=== PATIENT | male | born 1975 | race African-American/Black ===

== ENCOUNTER 2020-05-17 07:45 | Emergency (ER) | payer MEDICAID ==
[~2020-05-17] VITALS: Ht 190.5 cm; Wt 86.8 kg
[2020-05-17 07:47] VITALS: Ht 190.5 cm; Wt 86.8 kg
[2020-05-17] MEDS ORDERED: BACLOFEN10 MG PO (07:59)
[2020-05-17] MEDS ORDERED: DEPAKOTE ER250 MG PO (08:00)
[2020-05-17] MEDS ORDERED: FLOMAX0.4 MG PO (08:00)
[2020-05-17] MEDS ORDERED: OXYBUTYNIN CHLOR5 MG PO (08:00)
[2020-05-17] MEDS ORDERED: PROVERA10 MG PO (08:01)
[2020-05-17] MEDS ORDERED: PAXIL30 MG PO (08:01)
[2020-05-17] MEDS ORDERED: SENNA LAXATIVE8.6 MG PO (08:02)
[2020-05-17] MEDS ORDERED: TEGRETOL200 MG PO (08:03)
[2020-05-17] MEDS ORDERED: TECFIDERA PO (08:04)
[2020-05-17 11:05] VITALS: BP 119/78
== END 2020-05-17 11:05 | disposition home or self-care (01) ==
LOC: D.ER 07:45
DX: T83.098A Other mechanical complication of other urinary catheter, initial encounter (principal); G35 Multiple sclerosis

== ENCOUNTER 2020-07-01 09:06 | Inpatient (IN) | payer MEDICAID ==
[2020-07-01] VITALS (8 sets, daily range): BP systolic 105–120; BP diastolic 63–88; BMI 23.6
[~2020-07-01] VITALS: Ht 190.5 cm; Wt 78.6 kg
[~2020-07-01 09:06] MED LIST: BACLOFEN10 MG PO; DEPAKOTE ER250 MG PO; FLOMAX0.4 MG PO; OXYBUTYNIN CHLOR5 MG PO; PAXIL30 MG PO; PROVERA10 MG PO; SENNA LAXATIVE8.6 MG PO; TECFIDERA PO; TEGRETOL200 MG PO
--- NOTE | 2020-07-01 09:27 | NUR ---
COD SEPSIS INITIATED AT THIS TIME.
--- NOTE | 2020-07-01 09:28 | NUR ---
PT RECEIVED 1000 ML LR CARE MANAGER. PER EDP MAYCOL, SUBTRACT THIS FROM ORDERED LR BOLUS
--- NOTE | 2020-07-01 09:29 | NUR ---
PT TO RECEIVE 1577 LR BOLUS AFTER COMPLETION OF 1L BOLUS PT HAS HAD EN ROUTE.
[2020-07-01 09:39] LABS: BASOPHILS 0.1 % (0-2); EOSINOPHILS 0 % (0-7); HEMATOCRIT 35.2 % (42.0-54.0); HEMOGLOBIN 11.2 g/dL (13.5-17.5); IMMATURE GRANULOCYTES 0.3 % (0-5); MCH 28.5 pg (26.0-34.0); MCHC 31.8 g/dL (31.0-37.0); MCV 89.6 fL (80.0-100.0); MEAN PLATELET VOLUME 10.8 fL (7.4-10.4); NEUTROPHILS 80.6 % (40-80); PLATELET COUNT 183 10x3/uL (130-400); RBC 3.93 10x6/uL (4.20-6.10); RDW 16.4 % (11.5-14.5); WBC 10.4 10x3/uL (4.8-10.8)
[2020-07-01 09:50] LABS: APTT 34.8 SECONDS (22.8-39.4); INR 1.1 (0.85-1.17); PROTIME 14.1 SECONDS (11.6-15.0)
[2020-07-01 10:00] LABS: CALC OSMOLALITY 280 mosm/kg (275-300); CALCIUM 8.5 mg/dL (8.5-10.1); CHLORIDE - SERUM 104 mmol/L (98-107); CREATININE - SERUM 1.4 mg/dL (0.6-1.3); GLUCOSE 147 mg/dL (74-106); POTASSIUM - SERUM 3.5 mmol/L (3.5-5.1); SODIUM 138 mmol/L (136-145); UREA NITROGEN 19 mg/dL (7-18); eGFR NON AFRICAN AMERICAN 58 mL/min (90-120)
[2020-07-01] MEDS ORDERED: ACETAMINOPHEN325 MG PO (10:05)
[2020-07-01] MEDS ORDERED: ZINC-220220 MG PO (10:05)
[2020-07-01] MEDS ORDERED: KEFLEX500 MG PO (10:05)
[2020-07-01] MEDS ORDERED: VITAMIN D5000 UNI1 PO (10:06)
[2020-07-01] MEDS ORDERED: VITAMIN C500 M1 PO (10:06)
[2020-07-01 10:16] LABS: ALBUMIN 2.7 g/dL (3.4-5.0); ALKALINE PHOSPHATASE 74 U/L (30-120); ALT (SGPT) 52 U/L (10-68); BILIRUBIN - TOTAL 0.18 mg/dL (0.2-1.3); CKMB 0.4 U/L (0.0-3.6); CREATINE KINASE 507 UL (21-232); TROPONIN-I < 0.017 ng/mL (0.000-0.060)
[2020-07-01 10:29] LABS: BILIRUBIN NEGATIVE (NEGATIVE); GLUCOSE NEGATIVE (NEGATIVE); KETONE LARGE mg/dL (NEGATIVE); NITRITE NEGATIVE (NEGATIVE); UROBILINOGEN NORMAL (NORMAL)
[2020-07-01 10:32] LABS: BACTERIA FEW /hpf (NEGATIVE)
--- NOTE | 2020-07-01 15:06 | NUR ---
CALLED REPORT TO ARMAAN DIA
--- NOTE | 2020-07-01 15:38 | NUR ---
RECEIVED PATIENT TO ROOM 2137 VIA GERNEY FROM ED AT THIS TIME. PATIENT ALERT/ORIENTED. PATIENT EXTREMELY WEAK REQUIRING MAX ASSISTANCE DURING TRANSFERS. PATIENT HAS MS AND IS TOTALLY DEPENDENT ON CARES AT THIS TIME. CALL LIGHT WITHIN REACH. 20 GAUGE IV 20 LEFT HAND SL. PATIENT RESP EVEN AND UNLABORED. NO DISTRESS.
--- NOTE | 2020-07-01 17:17 | NUR ---
THERON FROM THE LAB CALLED TO REPORT PATIENT IS POSITIVE FOR COVID 19
--- NOTE | 2020-07-01 18:06 | NUR ---
ATTEMPTED TO CALL PATIENTS MOM, LILY HERNANDEZ, AT [phone], TO PROVIDE AN UPDATE ON THE PATIENT. THE PHONE DOES NOT EVEN RING, GOES STRAIGHT TO VOICE MAIL AND STATES THE MAILBOX IS FULL, UNABLE TO LEAVE MESSAGE.
[2020-07-02 05:07] VITALS: BP 117/68
[2020-07-02 07:07] LABS: BASOPHILS 0.1 % (0-2); EOSINOPHILS 0 % (0-7); HEMATOCRIT 34.3 % (42.0-54.0); HEMOGLOBIN 10.8 g/dL (13.5-17.5); IMMATURE GRANULOCYTES 0.4 % (0-5); MCH 28.2 pg (26.0-34.0); MCHC 31.5 g/dL (31.0-37.0); MCV 89.6 fL (80.0-100.0); MEAN PLATELET VOLUME 11.4 fL (7.4-10.4); MONOCYTES 8.6 % (2-11); NEUTROPHILS 73.9 % (40-80); PLATELET COUNT 163 10x3/uL (130-400); RBC 3.83 10x6/uL (4.20-6.10); RDW 16.7 % (11.5-14.5)
[2020-07-02 07:15] LABS: WBC 7.7 10x3/uL (4.8-10.8)
[2020-07-02 07:23] LABS: ALBUMIN 2.5 g/dL (3.4-5.0); ALKALINE PHOSPHATASE 65 U/L (30-120); ALT (SGPT) 40 U/L (10-68); CALC OSMOLALITY 284 mosm/kg (275-300); CALCIUM 8.5 mg/dL (8.5-10.1); CARBON DIOXIDE 26.6 mmol/L (21.0-32.0); CHLORIDE - SERUM 107 mmol/L (98-107); GLUCOSE 126 mg/dL (74-106); PROTEIN - SERUM 6.8 g/dL (6.4-8.2); SODIUM 141 mmol/L (136-145); UREA NITROGEN 18 mg/dL (7-18)
[2020-07-02 07:27] LABS: CREATININE - SERUM 0.9 mg/dL (0.6-1.3); POTASSIUM - SERUM 4.1 mmol/L (3.5-5.1); eGFR NON AFRICAN AMERICAN > 90 mL/min (90-120)
--- NOTE | 2020-07-02 08:00 | NUR ---
PT SITTING UP IN BED, RR EVEN AND UNLABORED ON 3L NC. REPOSITIONED TO COMFORT. SWITCHED OUT REGULAR CALL LIGHT FOR SPECIALIZED BLOW-CONTROLLED CALL LIGHT. ASSISTED WITH MEAL. BM X1. LINENS AND GOWN CHANGED. PT CLEANED. PT C/O HEELS HURTING. HEEL PROTECTORS PLACED. ORAL CARE PROVIDED. FACE WASHED PER REQUEST. MOISTERIZER APPLIED TO LIPS. ALLEN CARE PROVIDED TO SUPRAPUBIC CATHETER. WILL CONTINUE TO MONIOTR.Y
[2020-07-02 09:16] VITALS: BP 94/56
--- NOTE | 2020-07-02 17:00 | NUR ---
ASSISTED WITH MEAL. CALLED FAMILY MEMBER AND ASSISTED PT WITH HOLDING PHONE UP TO EAR. WILL CONTINUE TO MONITOR.
[2020-07-02 17:31] VITALS: BP 115/71
--- NOTE | 2020-07-02 19:30 | NUR ---
RECEIVED REPORT, WILL ASSUME CARE OF PT, GAVE A DRINK OF LEMONLIME, HELP TO REPOSTION, DENIES ANY OTHER NEEDS AT THIS TIME, BED IS LOW, SRX3, CALL LIGHT IN REACH OF MOUTH,WILL CONTINUE PLAN OF CARE
[2020-07-02 20:00] VITALS: BP 126/70
--- NOTE | 2020-07-03 04:14 | NUR ---
I have reviewed this patient and I concur with the Shift Assessment completed by the Licensed Practical Nurse today this shift.
[2020-07-03] MEDS ORDERED: TECFIDERA PO (07:16)
[2020-07-03 10:37] VITALS: BP 114/71
--- NOTE | 2020-07-03 11:03 | NUR ---
DEV DANIELLE REQUESTED THAT TECFIDERA 240MG BE RESTARTED. ADDED TO HOME MED REQ AND CONTACTED PHARMACY WHO STATED THAT IT WOULD BE BEST TO GET THAT MEDICATION FROM HOME BECAUSE THEY DO NOT CARRY IT. WILL CTM.
[2020-07-03 11:31] VITALS: BP 111/65
[2020-07-03 15:29] LABS: BASOPHILS 0.1 % (0-2); EOSINOPHILS 0 % (0-7); HEMATOCRIT 33.4 % (42.0-54.0); HEMOGLOBIN 10.3 g/dL (13.5-17.5); IMMATURE GRANULOCYTES 0.3 % (0-5); LYMPHOCYTES 9.8 % (15-50); MCH 27.9 pg (26.0-34.0); MCHC 30.8 g/dL (31.0-37.0); MCV 90.5 fL (80.0-100.0); MEAN PLATELET VOLUME 10.8 fL (7.4-10.4); MONOCYTES 7.8 % (2-11); PLATELET COUNT 184 10x3/uL (130-400); RBC 3.69 10x6/uL (4.20-6.10); RDW 16.7 % (11.5-14.5); WBC 6.9 10x3/uL (4.8-10.8)
[2020-07-03 16:35] LABS: C-REACTIVE PROTEIN 5.5 mg/dL (0.0-0.9); CALC OSMOLALITY 287 mosm/kg (275-300); CARBON DIOXIDE 28.3 mmol/L (21.0-32.0); CHLORIDE - SERUM 108 mmol/L (98-107); GLUCOSE 132 mg/dL (74-106); LDH 214 U/L (85-227); POTASSIUM - SERUM 4.5 mmol/L (3.5-5.1); SODIUM 143 mmol/L (136-145); UREA NITROGEN 14 mg/dL (7-18); eGFR NON AFRICAN AMERICAN 86 mL/min (90-120)
[2020-07-03 16:41] LABS: FERRITIN 1271 ng/mL (3-244)
[2020-07-03 16:44] VITALS: BP 115/62
--- NOTE | 2020-07-03 19:10 | NUR ---
PT RESTING IN BED WATCHING TV. HE IS ON 2.5L NC. NO DISTRESS NOTED. HEEL PROTECTORS ON. SUPRAPUBIC CATHETER IN PLACE, JULIANE COLORED URINE IN ALLEN DRAINAGE BAG. PT DENIES NEEDS OR PAIN. THE HANDS FREE DEVICE FOR TV REMOTE AND CALL LIGHT WITHIN REACH. BED IS LOW AND SIDE RAILS UP X 2.
[2020-07-03 20:00] VITALS: BP 119/59
[2020-07-04] VITALS: BP 109/66
[2020-07-04 04:00] VITALS: BP 114/64
[2020-07-04 09:05] VITALS: BP 92/73
--- NOTE | 2020-07-04 10:12 | NUR ---
PT SITTING UP IN BED, RR EVEN AND UNLABORED ON 3L NC. BREAKFAST TRAY DELIVERED. PT STAES HE IS NOT HUNGRY AND REFUSES TRAY. REPOSITIONED TO COMFORT. . DENIES NEEDS OR PAIN AT THIS TIME. SPECIALIZED CALL LIGHT WTIHIN REACH, BED IN LOWEST POSITION. WILL CONTINUE TO MONITOR.
--- NOTE | 2020-07-04 12:30 | NUR ---
I have reviewed this patient and I concur with the Shift Assessment completed by the Licensed Practical Nurse today this shift.
--- NOTE | 2020-07-04 12:36 | NUR ---
ASSISTED PT EATING. SPECIALIZED CALL LIGHT WITHIN REACH. BED IN LOWEST POSITION. HELD PHONE WHILE PT TALKED WITH HIS MOTHER. WILL CALL AND UPDATE HER ON POC WHEN I LEAVE THE ROOM. REPOSITIONED TO COMFORT. DENIES FURTHER NEEDS OR PAIN AT THIS TIME.
[2020-07-04 13:34] VITALS: BP 118/60
--- NOTE | 2020-07-04 14:46 | NUR ---
I have reviewed this patient and I concur with the Shift Assessment completed by the Licensed Practical Nurse today this shift.
[2020-07-04 19:00] LABS: BASOPHILS 0.2 % (0-2); EOSINOPHILS 0 % (0-7); HEMOGLOBIN 10.5 g/dL (13.5-17.5); IMMATURE GRANULOCYTES 0.8 % (0-5); LYMPHOCYTES 23.3 % (15-50); MCH 27.8 pg (26.0-34.0); MCHC 30.9 g/dL (31.0-37.0); MCV 89.9 fL (80.0-100.0); MEAN PLATELET VOLUME 11.5 fL (7.4-10.4); MONOCYTES 9.5 % (2-11); NEUTROPHILS 66.2 % (40-80); PLATELET COUNT 205 10x3/uL (130-400); RBC 3.78 10x6/uL (4.20-6.10); RDW 16.4 % (11.5-14.5); WBC 4.9 10x3/uL (4.8-10.8)
[2020-07-04 19:12] LABS: CALC OSMOLALITY 287 mosm/kg (275-300); CALCIUM 8.7 mg/dL (8.5-10.1); CARBON DIOXIDE 29.3 mmol/L (21.0-32.0); CHLORIDE - SERUM 109 mmol/L (98-107); CREATININE - SERUM 0.9 mg/dL (0.6-1.3); GLUCOSE 118 mg/dL (74-106); POTASSIUM - SERUM 4.3 mmol/L (3.5-5.1); SODIUM 144 mmol/L (136-145); UREA NITROGEN 12 mg/dL (7-18); eGFR NON AFRICAN AMERICAN > 90 mL/min (90-120)
[2020-07-04 20:00] VITALS: BP 118/67
[2020-07-05] VITALS: BP 135/72
--- NOTE | 2020-07-05 03:52 | NUR ---
I have reviewed this patient and I concur with the Shift Assessment completed by the Licensed Practical Nurse today this shift.
[2020-07-05 04:00] VITALS: BP 122/67
--- NOTE | 2020-07-05 05:10 | NUR ---
PT'S MOTHER WOULD LIKE TO TALK TO . [phone]. FOR UPDATE.
[2020-07-05 06:49] LABS: BASOPHILS 0.4 % (0-2); EOSINOPHILS 0 % (0-7); HEMATOCRIT 32.1 % (42.0-54.0); IMMATURE GRANULOCYTES 1.3 % (0-5); LYMPHOCYTES 32.5 % (15-50); MCH 28.2 pg (26.0-34.0); MCHC 31.2 g/dL (31.0-37.0); MCV 90.4 fL (80.0-100.0); MEAN PLATELET VOLUME 11.6 fL (7.4-10.4); NEUTROPHILS 54.8 % (40-80); PLATELET COUNT 207 10x3/uL (130-400); RBC 3.55 10x6/uL (4.20-6.10); RDW 16.6 % (11.5-14.5); WBC 5.5 10x3/uL (4.8-10.8)
[2020-07-05 06:55] LABS: C-REACTIVE PROTEIN 3.4 mg/dL (0.0-0.9); CALC OSMOLALITY 280 mosm/kg (275-300); CALCIUM 7.8 mg/dL (8.5-10.1); CARBON DIOXIDE 30.3 mmol/L (21.0-32.0); CHLORIDE - SERUM 104 mmol/L (98-107); FERRITIN 822 ng/mL (3-244); GLUCOSE 91 mg/dL (74-106); LDH 184 U/L (85-227); SODIUM 141 mmol/L (136-145); UREA NITROGEN 12 mg/dL (7-18); eGFR NON AFRICAN AMERICAN 86 mL/min (90-120)
[2020-07-05 07:00] LABS: POTASSIUM - SERUM 3.4 mmol/L (3.5-5.1)
--- NOTE | 2020-07-05 07:30 | NUR ---
REPORT RECIEVED. PT SITTING SEMI FOWLERS IN BED. RR EVEN AND UNLABORED ON 3L. PT HAS A SUPRAPUBIC CATH DRAINING URINE. PT HAS A R AND L HAND PIV THAT ARE BOTH SL. BED LOCKED AND IN LOWEST POSITION, CALL LIGHT WITHIN REACH. WILL CTM
[2020-07-05 08:19] VITALS: BP 114/69
[2020-07-05 11:49] VITALS: BP 117/58
--- NOTE | 2020-07-05 13:25 | MORECARE ---
CASE MANAGEMENT DISCHARGE SUMMARY PATIENT: MARK HEREDIA UNIT: [id number] ADM DATE: 07/01/20 AGE: 45 : 75 SEX: M ROOM/BED: D.2137 AUTHOR: NANDO MERCHANT PHYSICIAN: REFERRING PHYSICIAN: ANALISA ALCALA MD DATE OF SERVICE: 07/05/20 Discharge Plan Patient Name: MARK HEREDIA [facility] [facility] 1975 Planned Disposition: Home Anticipated Discharge Date: Discharge Date: Expected LOS: Initial Reviewer: [email or web address] Initial Review Date: 07/01/2020 Generated: 07/05/20 2:25 pm Patient Name: MARK HEREDIA Page [id number] at 1325 All edits/amendments must be made on the electronic document DICTATION DATE: 07/05/20 1325 PEDIATRIC SOCIAL WORKER: OBDULIO 07/05/20 1325 RPT#: [id number] DC DATE: STATUS: ADM IN [facility] [address] [place] [address] END OF REPORT
--- NOTE | 2020-07-05 13:32 | MORECARE ---
CASE MANAGEMENT DISCHARGE SUMMARY PATIENT: MARK HEREDIA UNIT: [id number] ADM DATE: 07/01/20 AGE: 45 : 75 SEX: M ROOM/BED: D.2137 AUTHOR: NANDO MERCHANT PHYSICIAN: REFERRING PHYSICIAN: ANALISA ALCALA MD DATE OF SERVICE: 07/05/20 Discharge Plan Patient Name: MARK HEREDIA [facility] [facility] 1975 Planned Disposition: Home Anticipated Discharge Date: Discharge Date: Expected LOS: Initial Reviewer: [email or web address] Initial Review Date: 07/01/2020 Generated: 07/05/20 2:32 pm Comments DCP- Discharge Planning Updated by [email or web address]: Kemi Riojas on 07/05/20 12:[address] CM called pt room for assessment and dc planning, but pt did not answer phone. Pt lives at [facility]. CM will continue to assist in dc planning. Kemi Riojas External Providers External Provider: [facility] Next Contact Date: Service Request Date: Service Type: Resolution: Reviewer: Comments: Last DP export: 07/05/20 12:25 pm Patient Name: MARK HEREDIA Page [id number] at 1332 All edits/amendments must be made on the electronic document DICTATION DATE: 07/05/20 1332 INFORMATION SERVICES CONSULTANT: OBDULIO 07/05/20 1332 RPT#: [id number] DC DATE: STATUS: ADM IN [facility] [address] [place] [address] END OF REPORT
--- NOTE | 2020-07-05 13:57 | MORECARE ---
CASE MANAGEMENT DISCHARGE SUMMARY PATIENT: MARK HEREDIA UNIT: [id number] ADM DATE: 07/01/20 AGE: 45 : 75 SEX: M ROOM/BED: D.2137 AUTHOR: NANDO MERCHANT PHYSICIAN: REFERRING PHYSICIAN: ANALISA ALCALA MD DATE OF SERVICE: 07/05/20 Discharge Plan Patient Name: MARK HEREDIA Facility: [facility]:[place] : 1975 Planned Disposition: Home Anticipated Discharge Date: Discharge Date: Expected LOS: Initial Reviewer: [email or web address] Initial Review Date: 07/01/2020 Generated: 07/05/20 2:57 pm Comments DCP- Discharge Planning Updated by [email or web address]: Kmei Cohen on 07/05/20 12:[address] CM CALLED [facility] AT [phone] AND SPOKE WITH ANA. ANA STATES THE PATIENT WAS BEDBOUND PRIOR TO ADMISSION/. REPORTS HE WAS ABLE TO MOVE HIS UPPER ARMS, WAS ORIENTED X 3, AND WAS NOT ON OXYGEN. STATES APS HAS CUSTODY. HIS DISPENSING LEAD IS YOBANY DELATORRE AT [phone]. CM CALLED YOBANY AND LEFT MESSAGE TO CALL BACK. FACILITY STATES THEY SPEAK WITH THE PT MOTHER LILY AT [phone]. CM WILL CALL MOTHER WITH UPDATES UPON APPOVAL OF APS. CM WILL CONTINUE TO ASSIST NEEDED. KEMI COHEN DCP- Discharge Planning Updated by [email or web address]: Kemi Cohen on 07/05/20 12:[address] CM called pt room for assessment and dc planning, but pt did not answer phone. Pt lives at [facility]. CM will continue to assist in dc planning. Kemi Cohen Last DP export: 07/05/20 12:32 pm Patient Name: MARK HEREDIA Page [id number] at 1357 All edits/amendments must be made on the electronic document DICTATION DATE: 07/05/20 1357 FURNACE COMBUSTION TESTER: OBDULIO 07/05/20 1357 RPT#: [id number] DC DATE: STATUS: ADM IN [facility] [address] [facility] [place] [address] END OF REPORT
[2020-07-05 16:10] VITALS: BP 114/69
--- NOTE | 2020-07-05 18:08 | NUR ---
I have reviewed this patient and I concur with the Shift Assessment completed by the Licensed Practical Nurse today this shift.
[2020-07-06 05:20] LABS: BASOPHILS 0.2 % (0-2); EOSINOPHILS 0 % (0-7); HEMATOCRIT 31.3 % (42.0-54.0); HEMOGLOBIN 9.8 g/dL (13.5-17.5); IMMATURE GRANULOCYTES 2.5 % (0-5); MCH 28.1 pg (26.0-34.0); MCHC 31.3 g/dL (31.0-37.0); MCV 89.7 fL (80.0-100.0); MEAN PLATELET VOLUME 11.4 fL (7.4-10.4); MONOCYTES 10.9 % (2-11); NEUTROPHILS 60.4 % (40-80); PLATELET COUNT 198 10x3/uL (130-400); RBC 3.49 10x6/uL (4.20-6.10); RDW 16.3 % (11.5-14.5); WBC 6.5 10x3/uL (4.8-10.8)
[2020-07-06 05:29] LABS: CALC OSMOLALITY 294 mosm/kg (275-300); CALCIUM 7.6 mg/dL (8.5-10.1); CARBON DIOXIDE 30.9 mmol/L (21.0-32.0); CHLORIDE - SERUM 109 mmol/L (98-107); CREATININE - SERUM 0.9 mg/dL (0.6-1.3); GLUCOSE 92 mg/dL (74-106); POTASSIUM - SERUM 3.8 mmol/L (3.5-5.1); SODIUM 149 mmol/L (136-145); UREA NITROGEN 11 mg/dL (7-18); eGFR NON AFRICAN AMERICAN > 90 mL/min (90-120)
[2020-07-06 07:19] VITALS: BP 123/72
[2020-07-06 10:31] VITALS: BP 122/57
--- NOTE | 2020-07-06 12:00 | NUR ---
PT MOTHER CALLING TO SPEAK WITH PT. AIDE WILL ASSIST PT IN ROOM AT LUNCH WITH FEEDING AND PHONE CALL.
[2020-07-06 12:52] VITALS: Ht 190.5 cm; Wt 78.6 kg
[2020-07-06 14:59] VITALS: BP 104/67
--- NOTE | 2020-07-06 16:20 | NUR ---
PT TURNED, PILLOW SUPPORT, HEELS FLOATED ON PILLOW. PT REQUESTED THAT HIS HEEL BE MASSAGED. CALL LIGHT WITHIN REACH.
[2020-07-07] VITALS: BP 100/54
--- NOTE | 2020-07-07 03:31 | NUR ---
PT RESTING QUIETLY WITH EYES CLOSED. NO S/S OF DISTRESS OBSERVED. CALL LIGHT WITHIN REACH FOR HIM TO USE. NO NEEDS EXPRESSED. WILL CTM.
[2020-07-07 05:34] LABS: BASOPHILS 0.1 % (0-2); EOSINOPHILS 0 % (0-7); HEMATOCRIT 31.1 % (42.0-54.0); HEMOGLOBIN 9.6 g/dL (13.5-17.5); IMMATURE GRANULOCYTES 1.6 % (0-5); MCHC 30.9 g/dL (31.0-37.0); MCV 90.7 fL (80.0-100.0); MEAN PLATELET VOLUME 10.7 fL (7.4-10.4); MONOCYTES 12.1 % (2-11); NEUTROPHILS 69.2 % (40-80); PLATELET COUNT 228 10x3/uL (130-400); RBC 3.43 10x6/uL (4.20-6.10); RDW 16.5 % (11.5-14.5); WBC 8.1 10x3/uL (4.8-10.8)
[2020-07-07 06:15] LABS: C-REACTIVE PROTEIN 6.2 mg/dL (0.0-0.9); CALC OSMOLALITY 289 mosm/kg (275-300); CALCIUM 7.5 mg/dL (8.5-10.1); CARBON DIOXIDE 29.6 mmol/L (21.0-32.0); CHLORIDE - SERUM 109 mmol/L (98-107); CREATININE - SERUM 0.9 mg/dL (0.6-1.3); FERRITIN 855 ng/mL (3-244); GLUCOSE 100 mg/dL (74-106); LDH 227 U/L (85-227); POTASSIUM - SERUM 3.4 mmol/L (3.5-5.1); SODIUM 146 mmol/L (136-145); UREA NITROGEN 9 mg/dL (7-18); eGFR NON AFRICAN AMERICAN > 90 mL/min (90-120)
[2020-07-07 08:57] VITALS: BP 123/58
[2020-07-07 12:47] VITALS: BP 122/73
--- NOTE | 2020-07-07 15:20 | NUR ---
FED PT HIS PIE FROM LUNCH. PT CONSUMED ALL OF PIE BUT NOT THE REST OF HIS LUNCH.
--- NOTE | 2020-07-07 15:31 | NUR ---
PT RECEIVED BED BATH TODAY, LINENS CHANGED. PT TOLERATED WELL.
[2020-07-07 17:18] VITALS: BP 110/65
[2020-07-07 20:00] VITALS: BP 128/69
[2020-07-08 10:36] VITALS: BP 118/52
[2020-07-08 12:23] VITALS: BP 112/69
[2020-07-08 16:03] VITALS: BP 122/71
[2020-07-08 21:38] VITALS: BP 128/79
--- NOTE | 2020-07-09 09:21 | NUR ---
PT AWAKE AND ORIETNED WHEN I ENTERED ROOM. PT TURNED TO LEFT SIDE. REQUESTS FOR US TO CALL HIS LONG-TERM, INFORMED PT I WOULD DO IT AFTER MORNING MEDICATIOSN. ATE TWO SMALL BITES OF BREAKFAST THEN REFUSED MORE. CL IN REACH, SRX2.
[2020-07-09 11:00] VITALS: BP 111/59
--- NOTE | 2020-07-09 14:08 | NUR ---
Nutrition Follow-up: Pt in droplet isolation; covid-19 +. Nursing reports pt not eating well, taking only a few bites of each meal. Diet: Regular, Ensure TID Wt: 173# (07/07) Last BM: 07/09 per chart Labs reviewed Meds noted: Colace, Senokot, Pepcid, Zinc Sulfate, vitamin D, vitamin C -Encourage PO intake and honor food preferences within diet restrictions. -Need new wt; noted daily wts ordered. -RD following.
--- NOTE | 2020-07-09 17:37 | NUR ---
PT AWAKE AND ORIENTED, TURNED TO LEFT SIDE. PT ATE ALL OF HIS PUDDING AND ONE BITE OF PORK. STATES HE'S NO LONGER HUNGRY. DRANK [place]. PREFORMED ORAL CARE. CL IN REACH, SRX2.
--- NOTE | 2020-07-09 18:00 | NUR ---
I have reviewed this patient and I concur with the Shift Assessment completed by the Licensed Practical Nurse today this shift.
--- NOTE | 2020-07-09 20:04 | NUR ---
UNABLE TO SCAN MEDICATION IN PT ROOM
[2020-07-09 20:05] VITALS: BP 117/73
--- NOTE | 2020-07-10 01:22 | NUR ---
PT VOICES NO C/O OR CONCERNS DURING THE NIGHT. CALL LIGHT IN REACH. WILL CTM.
[2020-07-10 07:15] LABS: BASOPHILS 0.3 % (0-2); EOSINOPHILS 0.3 % (0-7); HEMATOCRIT 30.5 % (42.0-54.0); HEMOGLOBIN 9.4 g/dL (13.5-17.5); IMMATURE GRANULOCYTES 1.5 % (0-5); MCH 27.7 pg (26.0-34.0); MCHC 30.8 g/dL (31.0-37.0); MEAN PLATELET VOLUME 10.3 fL (7.4-10.4); MONOCYTES 10.1 % (2-11); NEUTROPHILS 66.8 % (40-80); RBC 3.39 10x6/uL (4.20-6.10); RDW 16.3 % (11.5-14.5); WBC 6.8 10x3/uL (4.8-10.8)
[2020-07-10 07:25] LABS: PLATELET COUNT 294 10x3/uL (130-400)
[2020-07-10 07:32] LABS: CALC OSMOLALITY 289 mosm/kg (275-300); CALCIUM 7.8 mg/dL (8.5-10.1); CARBON DIOXIDE 30.2 mmol/L (21.0-32.0); CHLORIDE - SERUM 109 mmol/L (98-107); CREATININE - SERUM 0.9 mg/dL (0.6-1.3); GLUCOSE 90 mg/dL (74-106); POTASSIUM - SERUM 3.1 mmol/L (3.5-5.1); SODIUM 146 mmol/L (136-145); UREA NITROGEN 11 mg/dL (7-18); eGFR NON AFRICAN AMERICAN > 90 mL/min (90-120)
[2020-07-10 09:05] VITALS: BP 144/70
[2020-07-10 13:04] VITALS: BP 106/54
[2020-07-10 14:38] VITALS: BP 124/63
[2020-07-10 20:00] VITALS: BP 126/60
[2020-07-11 04:00] VITALS: BP 123/60
[2020-07-11 08:29] VITALS: BP 118/60
[2020-07-11] MEDS ORDERED: LEVOFLOXACIN500 MG PO (09:31)
[2020-07-11 10:53] LABS: CALC OSMOLALITY 298 mosm/kg (275-300); CALCIUM 8.1 mg/dL (8.5-10.1); CARBON DIOXIDE 28.4 mmol/L (21.0-32.0); CHLORIDE - SERUM 111 mmol/L (98-107); CREATININE - SERUM 0.9 mg/dL (0.6-1.3); GLUCOSE 115 mg/dL (74-106); POTASSIUM - SERUM 3.2 mmol/L (3.5-5.1); SODIUM 150 mmol/L (136-145); UREA NITROGEN 12 mg/dL (7-18); eGFR NON AFRICAN AMERICAN > 90 mL/min (90-120)
[2020-07-11 10:56] LABS: BASOPHILS 0.8 % (0-2); EOSINOPHILS 0.6 % (0-7); HEMATOCRIT 31.1 % (42.0-54.0); HEMOGLOBIN 9.6 g/dL (13.5-17.5); IMMATURE GRANULOCYTES 2.4 % (0-5); LYMPHOCYTES 19.9 % (15-50); MCH 28.2 pg (26.0-34.0); MCHC 30.9 g/dL (31.0-37.0); MCV 91.2 fL (80.0-100.0); MEAN PLATELET VOLUME 10.7 fL (7.4-10.4); NEUTROPHILS 67.3 % (40-80); PLATELET COUNT 244 10x3/uL (130-400); RBC 3.41 10x6/uL (4.20-6.10); RDW 16.4 % (11.5-14.5); WBC 6.6 10x3/uL (4.8-10.8)
--- NOTE | 2020-07-11 13:16 | MORECARE ---
CASE MANAGEMENT DISCHARGE SUMMARY PATIENT: MARK HEERDIA UNIT: [id number] ADM DATE: 07/01/20 AGE: 45 : 75 SEX: M ROOM/BED: D.2133 AUTHOR: MAYUR,DOC PHYSICIAN: REFERRING PHYSICIAN: ANALISA ALCALA MD DATE OF SERVICE: 07/11/20 Discharge Plan Patient Name: MARK HEREDIA Facility: [facility]:[place] : 1975 Planned Disposition: Home Anticipated Discharge Date: Discharge Date: Expected LOS: Initial Reviewer: [email or web address] Initial Review Date: 07/01/2020 Generated: 07/11/20 2:16 pm Comments DCP- Discharge Planning Updated by [email or web address]: Kemi Cohen on 07/11/20 12:[address] Patient Name: MARK HEREDIA Encounter No: [id number] : 1975 Primary Insurance: MEDICAID [place] Anticipated DC Date: Planned Disposition: Home External Planned Provider: : [facility] DCP follow-up note: CM spoke with Alexa at [facility]. Pt will return to a [facility] long-term bed in the covid unit on [address]. Transportation will be by EMS. Nursing will need to call report to [facility] nurse. Patient and family in agreement with discharge plan. Updated orders and covid results requested information faxed to SNF. Patient\family notified of anticipated dc time. SNF phone number and contact information given to patient \family. Kemi Cohen DCP- Discharge Planning Updated by [email or web address]: Kemi Cohen on 07/05/20 12:[address] CM CALLED [facility] AT [phone] AND SPOKE WITH ANA. ANA STATES THE PATIENT WAS BEDBOUND PRIOR TO ADMISSION/. REPORTS HE WAS ABLE TO MOVE HIS UPPER ARMS, WAS ORIENTED X 3, AND WAS NOT ON OXYGEN. STATES APS HAS CUSTODY. HIS MACHINE STRIPPER CUTTER IS YOBANY DELATORRE AT [phone]. CM CALLED YOBANY AND LEFT MESSAGE TO CALL BACK. FACILITY STATES THEY SPEAK WITH THE PT MOTHER LILY AT [phone]. CM WILL CALL MOTHER WITH UPDATES UPON APPOVAL OF APS. CM WILL CONTINUE TO ASSIST NEEDED. KEMI COHEN DCP- Discharge Planning Updated by [email or web address]: Kemi Cohen on 07/05/20 12:[address] CM called pt room for assessment and dc planning, but pt did not answer phone. Pt lives at [facility]. CM will continue to assist in dc planning. Kemi Cohen Last DP export: 07/05/20 12:57 pm Patient Name: MARK HEREDIA Page 61065 at 1316 All edits/amendments must be made on the electronic document DICTATION DATE: 07/11/20 1316 ACCOUNTS RECEIVABLE CLERK: OBDULIO 07/11/20 1316 RPT#: [id number] DC DATE: STATUS: ADM IN [facility] [address] [place] [address] END OF REPORT
--- NOTE | 2020-07-11 13:25 | MORECARE ---
CASE MANAGEMENT DISCHARGE SUMMARY PATIENT: AMRK HEREDIA UNIT: [id number] ADM DATE: 07/01/20 AGE: 45 : 75 SEX: M ROOM/BED: D.2133 AUTHOR: MAYUR,DOC PHYSICIAN: REFERRING PHYSICIAN: ANALISA ALCALA MD DATE OF SERVICE: 07/11/20 Discharge Plan Patient Name: MARK HEREDIA Facility: [facility]:[place] : 1975 Planned Disposition: Home Anticipated Discharge Date: Discharge Date: Expected LOS: Initial Reviewer: [email or web address] Initial Review Date: 07/01/2020 Generated: 07/11/20 2:24 pm Comments DCP- Discharge Planning Updated by [email or web address]: Kemi Cohen on 07/11/20 12:[address] Patient Name: MARK HEREDIA Encounter No: [id number] : 1975 Primary Insurance: MEDICAID [place] Anticipated DC Date: Planned Disposition: Home External Planned Provider: : [facility] DCP follow-up note: CM spoke with Alexa at [facility]. Pt will return to a [facility] long-term bed in the covid unit on [address]. Transportation will be by EMS. Nursing will need to call report to [facility] nurse. Patient and family in agreement with discharge plan. Updated orders and covid results requested information faxed to SNF. Patient\family notified of anticipated dc time. SNF phone number and contact information given to patient \family. Kemi Cohen DCP- Discharge Planning Updated by [email or web address]: Kemi Cohen on 07/05/20 12:[address] CM CALLED [facility] AT [phone] AND SPOKE WITH ANA. ANA STATES THE PATIENT WAS BEDBOUND PRIOR TO ADMISSION/. REPORTS HE WAS ABLE TO MOVE HIS UPPER ARMS, WAS ORIENTED X 3, AND WAS NOT ON OXYGEN. STATES APS HAS CUSTODY. HIS SOLDERING MACHINE OPERATOR HELPER IS YOBANY DELATORRE AT [phone]. CM CALLED YOBANY AND LEFT MESSAGE TO CALL BACK. FACILITY STATES THEY SPEAK WITH THE PT MOTHER LILY AT [phone]. CM WILL CALL MOTHER WITH UPDATES UPON APPOVAL OF APS. CM WILL CONTINUE TO ASSIST NEEDED. KEMI COHEN DCP- Discharge Planning Updated by [id number]: Kemi Cohen on 07/05/20 12:[address] CM called pt room for assessment and dc planning, but pt did not answer phone. Pt lives at [facility]. CM will continue to assist in dc planning. Kemi Cohen Last DP export: 07/11/20 12:16 p Patient Name: MARK HEREDIA Page 71989 at 1325 All edits/amendments must be made on the electronic document DICTATION DATE: 07/11/20 1325 TUBE KNITTER: OBDULIO 07/11/20 1325 RPT#: [id number] DC DATE: STATUS: ADM IN [facility] [address] [place] [address] END OF REPORT
--- NOTE | 2020-07-11 13:34 | NUR ---
REPORT CALLED TO [facility]. EMS TO TRANSPORT PT.
--- NOTE | 2020-07-11 13:45 | NUR ---
EMS CALLED TO NOTIFY OF PT TRANSPORT. THEY STATED IT WOULD BE ABOUT AN HOUR BEFORE THEY COULD COME GET HIM. WILL CTM
--- NOTE | 2020-07-11 17:20 | NUR ---
EMS CALLED AT THIS TIME. THEY STATED THEY WERE BACKED UP WITH EMERGENCIES, BUT PT WAS NEXT ON THEIR LIST. WILL CTM
--- NOTE | 2020-07-11 18:02 | NUR ---
[facility] HERE TO TRANSPORT PT BACK TO THE [facility], PIV REMOVED,CATH TIP FULLY INTACT. PT BEING DC WITH A SUPRAPUBIC CATH. ALL VALUBLES TAKEN WITH PT.
--- NOTE | 2020-07-11 21:17 | MORECARE ---
CASE MANAGEMENT DISCHARGE SUMMARY PATIENT: MARK HEREDIA UNIT: [id number] ADM DATE: 07/01/20 AGE: 45 : 75 SEX: M ROOM/BED: D.2133 AUTHOR: MAYUR,DOC PHYSICIAN: REFERRING PHYSICIAN: ANALISA ALCALA MD DATE OF SERVICE: 07/11/20 Discharge Plan Patient Name: MARK HEREDIA Facility: [facility]:[place] : 1975 Planned Disposition: Home Anticipated Discharge Date: Discharge Date: 07/11/2020 Expected LOS: Initial Reviewer: [email or web address] Initial Review Date: 07/01/2020 Generated: 07/11/20 10:16 pm Comments DCP- Discharge Planning Updated by [email or web address]: Kemi Cohen on 07/11/20 12:[address] Patient Name: MARK HEREDIA Encounter No: [id number] : 1975 Primary Insurance: MEDICAID [place] Anticipated DC Date: Planned Disposition: Home External Planned Provider: : [facility] DCP follow-up note: CM spoke with Alexa at [facility]. Pt will return to a [facility] long-term bed in the covid unit on [facility]. Transportation will be by EMS. Nursing will need to call report to [facility] nurse. Patient and family in agreement with discharge plan. Updated orders and covid results requested information faxed to SNF. Patient\family notified of anticipated dc time. SNF phone number and contact information given to patient \family. Kemi Cohen DCP- Discharge Planning Updated by [id number]: Kemi Cohen on 07/05/20 12:[address] CM CALLED [facility] AT [phone] AND SPOKE WITH KRISTY. PEREZ STATES THE PATIENT WAS BEDBOUND PRIOR TO ADMISSION/. REPORTS HE WAS ABLE TO MOVE HIS UPPER ARMS, WAS ORIENTED X 3, AND WAS NOT ON OXYGEN. STATES APS HAS CUSTODY. HIS SALESFORCE SPECIALIST IS YOBANYGurmeet DELATORRE AT [phone]. CM CALLED YOBANY AND LEFT MESSAGE TO CALL BACK. FACILITY STATES THEY SPEAK WITH THE PT MOTHER LILY AT [phone]. CM WILL CALL MOTHER WITH UPDATES UPON APPOVAL OF APS. CM WILL CONTINUE TO ASSIST NEEDED. KEMI COHEN DCP- Discharge Planning Updated by [email or web address]: Kemi Cohen on 07/05/20 12:[address] CM called pt room for assessment and dc planning, but pt did not answer phone. Pt lives at [facility]. CM will continue to assist in dc planning. Kemi Cohen Last DP export: 07/11/20 12:25 p Patient Name: MARK HEREDIA Page [id number] at 2117 All edits/amendments must be made on the electronic document DICTATION DATE: 07/11/202115 APPLIANCE LINE ASSEMBLER: OBDULIO 07/11/202115 RPT#: [id number] DC DATE:07/11/20 STATUS: DIS IN [facility] [address] [place] [address] END OF REPORT
== END 2020-07-11 18:03 | DRG 871 ==
LOC: D.ER 09:06 → D.M2 14:53
PROVIDERS: Emergency Medicine; Family Medicine; ADMIT Legal Medicine; ATTEND Legal Medicine
DX: A41.9 Sepsis, unspecified organism (principal); U07.1 COVID-19; J12.89 Other viral pneumonia; G82.50 Quadriplegia, unspecified; N39.0 Urinary tract infection, site not specified; G35 Multiple sclerosis; G71.00 Muscular dystrophy, unspecified; R00.0 Tachycardia, unspecified; Z72.0 Tobacco use; J44.9 Chronic obstructive pulmonary disease, unspecified; K59.00 Constipation, unspecified; D64.9 Anemia, unspecified

== ENCOUNTER → 2021-02-09 | Emergency (ER) | payer MEDICAID ==
[~2021-02-09] VITALS: Ht 190.5 cm; Wt 86.4 kg
[~2021-02-09] MED LIST changes: +ACETAMINOPHEN325 MG PO; +CEPHALEXIN500 M1 PO; +KEFLEX500 MG PO; +LEVOFLOXACIN500 MG PO; +MACROBID100 MG PO; +VITAMIN C500 M1 PO; +VITAMIN D5000 UNI1 PO; +ZINC-220220 MG PO
[2021-02-09 09:12] VITALS: Ht 190.5 cm; Wt 86.4 kg
[2021-02-09 11:23] LABS: BILIRUBIN NEGATIVE (NEGATIVE); KETONE SMALL mg/dL (NEGATIVE); NITRITE POSITIVE (NEGATIVE); UROBILINOGEN NORMAL mg/dL (< 2)
[2021-02-09 11:24] LABS: BACTERIA MANY HPF (NONE SEEN); WHITE CELLS - URINE 0-5 HPF (0-1)
[2021-02-09 11:42] VITALS: BP 106/62
== END | disposition home or self-care (01) ==
LOC: D.ER 09:04
PROVIDERS: Family Medicine
DX: T83.518A Infection and inflammatory reaction due to other urinary catheter, initial encounter (principal); N39.0 Urinary tract infection, site not specified